=== PATIENT | male | born 1965 | race Caucasian/White ===

== ENCOUNTER 2020-04-11 21:53 | Emergency (ER) | payer MEDICAID ==
[~2020-04-11] VITALS: Ht 185.4 cm; Wt 85.7 kg
--- NOTE | 2020-04-11 22:03 | NUR ---
Dr. Hayes examining patient.
[2020-04-11 22:05] VITALS: BP 136/82
--- NOTE | 2020-04-11 22:05 | NUR ---
PATIENT TAKEN TO XRAY VIA W/C.
[2020-04-11] MEDS ORDERED: KETOROLAC 30 MG/ML VIAL IM ONE (22:10)
--- NOTE | 2020-04-11 22:18 | NUR ---
see complete assessment.
[2020-04-12 00:05] VITALS: BP 134/88
--- NOTE | 2020-04-12 00:05 | NUR ---
Patient discharged with v/s stable. Written and verbal after care instructions given and explained. Patient alert, oriented and verbalized understanding of instructions. Ambulatory with steady gait. All questions addressed prior to discharge. ID band removed. Patient advised to follow up with PMD. Rx of VALIUM, NAPROSYN given. Patient educated on indication of medication including possible reaction and side effects. Opportunity to ask questions provided and answered.
== END 2020-04-12 00:05 | disposition home or self-care (01) ==
LOC: MED 21:53
DX: S16.1XXA Strain of muscle, fascia and tendon at neck level, initial encounter (principal); R51.9 Headache, unspecified; I10 Essential (primary) hypertension; V49.9XXA Car occupant (driver) (passenger) injured in unspecified traffic accident, initial encounter; Y93.89 Activity, other specified; Y92.411 Interstate highway as the place of occurrence of the external cause; Y99.8 Other external cause status
CPT/HCPCS: 70450; 71045; 72125; 96372; 99285; J1885